=== PATIENT | female | born 1935 | race Caucasian/White ===

== ENCOUNTER 2023-05-11 14:49 | Emergency (ER) | payer OTHER ==
[~2023-05-11] VITALS: Ht 152.4 cm; Wt 47.6 kg
[2023-05-11 15:01] VITALS: BP_SYST 157
--- NOTE | 2023-05-11 15:01 | NUR ---
Placed in room 01 . Placed on court monitor, blood pressure machine and pulse oximeter. To gown for exam. Side rails up.
--- NOTE | 2023-05-11 15:02 | NUR ---
RECEIVED PT FROM ANGELICA MOREIRA. PT DEWEY KING FOR C/O GENERALIZED WEAKNESS X1 DAY. PT IS AAOX4. ON R/A. NO S/S OF RESP DISTRESS. DISTAL PULSES NORMAL, SKIN WARM, CDI, NO EDEMA. DENIES PAIN.
--- NOTE | 2023-05-11 15:15 | NUR ---
DR. GUPTA AT BEDSIDE TO ASSESS PT.
--- NOTE | 2023-05-11 15:30 | NUR ---
# 22 gauge angiocath placed to RAC. Use of asceptic technique. Opsite placed over site. Blood return noted. Blood for lab drawn from site. Flushed with 10 cc of normal saline. No evidence of infiltration noted. Patient tolerated well.
[2023-05-11] MEDS ORDERED: NACL 0.9% 1,000 ML IV ONE (15:45)
[2023-05-11 16:08] LABS: BASOPHILS % (AUTO) 0.3 % (0.0-2.0); EOSINOPHILS # (AUTO) 0.1 K/uL (0.0-0.4); EOSINOPHILS % (AUTO) 1.9 % (0.0-4.0); HEMATOCRIT 36.2 % (36-48); LYMPHOCYTES # (AUTO) 1.1 K/uL (1.0-5.5); MEAN CORPUSCULAR HEMOGLOBIN 31 pg (27-31); MEAN CORPUSCULAR HGB CONC 33 % (32-36); MEAN CORPUSCULAR VOLUME 93 fL (79.0-98.0); MONOCYTES # (AUTO) 0.3 K/uL (0.0-1.0); MONOCYTES % (AUTO) 8.6 % (1.7-9.3); NEUTROPHILS % (AUTO) 57.2 % (40.0-70.0); PLATELET COUNT (AUTO) 146 K/uL (130-430); RED BLOOD CELL COUNT(AUTO) 3.92 MIL/uL (4.2-6.2); RED CELL DISTRIBUTION WIDTH 14.2 % (9.0-15.0); WHITE BLOOD COUNT (AUTO) 3.5 K/uL (4.8-10.8)
[2023-05-11 16:19] LABS: ANION GAP 4 (5-15); CHLORIDE 104 mmol/L (98-107); CREATININE 0.71 mg/dL (0.55-1.30); GLUCOSE 88 mg/dL (74-106); UREA NITROGEN, BLOOD 14 mg/dL (8-21)
[2023-05-11 16:26] LABS: ALANINE AMINOTRANSFERASE 14 U/L (12-78); ALBUMIN 3.5 g/dL (3.4-4.8); ASPARTATE AMINOTRANSFERASE 16 U/L (10-37); TOTAL BILIRUBIN 0.5 mg/dL (0.0-1.0)
[2023-05-11 17:28] LABS: BILIRUBIN,URINE NEGATIVE (NEGATIVE); BLOOD, URINE NEGATIVE (NEGATIVE); CLARITY/URINE CLEAR (CLEAR); GLUCOSE,URINE NEGATIVE (NEGATIVE); KETONES,URINE NEGATIVE (NEGATIVE); LEUKOCYTE ESTERASE ,URINE TRACE (NEGATIVE); NITRITE, URINE NEGATIVE (NEGATIVE); PROTEIN URINE NEGATIVE (NEGATIVE); UROBILINOGEN,URINE 0.2 (0.2-1.0)
[2023-05-11 17:30] LABS: COLOR,URINE STRAW (YELLOW)
[2023-05-11 17:35] LABS: RBC,URINE 0-3 /HPF (0-3)
[2023-05-11 17:36] LABS: BACTERIA,URINE FEW /HPF (None Seen); MUCUS,URINE None Seen /LPF (None Seen)
--- NOTE | 2023-05-11 18:00 | NUR ---
DR. GUPTA AT BEDSIDE TO DISCUSS POC.
[2023-05-11] MEDS ORDERED: cefTRIAXone 1 GM VIAL ONE (18:26)
[2023-05-11] MEDS ORDERED: cefTRIAXone 1 GM in D5W 50 ML IV ONE (18:30)
[2023-05-11] MEDS ORDERED: ASPIRIN 81 MG TABLET(ECOTRIN) PO ONE (18:30)
[2023-05-11] MEDS ORDERED: SULF1TAB47 PO (18:39)
[2023-05-11] MEDS ORDERED: ASPI-1393 PO (18:39)
[2023-05-11 18:50] VITALS: BP_SYST 142
--- NOTE | 2023-05-11 18:54 | NUR ---
Patient given written and verbal discharge instructions and verbalizes understanding. ER MD discussed with patient the results and treatment provided. Patient in stable condition. ID arm band removed. IV catheter removed intact and dressing applied, no active bleeding. Rx of BACTRIM, ASA given. Patient educated on pain management and to follow up with PMD. Pain Scale 0/10. Opportunity for questions provided and answered. Medication side effect fact sheet provided.
== END 2023-05-11 18:50 | disposition home or self-care (01) ==
LOC: SED 14:49
DX: N39.0 Urinary tract infection, site not specified (principal); R53.1 Weakness; I10 Essential (primary) hypertension; Z88.0 Allergy status to penicillin; Z79.899 Other long term (current) drug therapy
CPT/HCPCS: 99285; 96365; 70450; 71045; 96361; 80053; 81000; 83880; 85025; 87086; 84484; 36415; 93005; 76376; J0696; J7030

== ENCOUNTER 2023-05-22 21:55 | Inpatient (IN) | payer OTHER ==
[~2023-05-22] VITALS: Ht 170.2 cm; Wt 48.1 kg
[2023-05-22 21:55] VITALS: BP_SYST 144; PULSE 92; RESP 16; TEMP 97.6; O2SAT 99
[~2023-05-22 21:55] MED LIST: ASPI-1393 PO; SULF1TAB47 PO
[2023-05-22] MEDS ORDERED: LEVO25TA7 PO (22:16)
[2023-05-23] VITALS (7 sets, daily range): BP systolic 65–142; PULSE 67–96; RESP 17–20; TEMP 97.3–98.3; O2SAT 95–98
[2023-05-23 00:03] LABS: BILIRUBIN,URINE NEGATIVE (NEGATIVE); BLOOD, URINE NEGATIVE (NEGATIVE); CLARITY/URINE CLEAR (CLEAR); COLOR,URINE YELLOW (YELLOW); GLUCOSE,URINE NEGATIVE (NEGATIVE); KETONES,URINE NEGATIVE (NEGATIVE); LEUKOCYTE ESTERASE ,URINE NEGATIVE (NEGATIVE); NITRITE, URINE NEGATIVE (NEGATIVE); PROTEIN URINE NEGATIVE (NEGATIVE); UROBILINOGEN,URINE 0.2 (0.2-1.0)
[2023-05-23] MEDS ORDERED: iohexoL 350 mgI/mL, 100 ML INFUS..BTL IV ONE (00:43)
[2023-05-23 00:54] LABS: BASOPHILS % (AUTO) 0.4 % (0.0-2.0); EOSINOPHILS # (AUTO) 0.1 K/uL (0.0-0.4); EOSINOPHILS % (AUTO) 2.6 % (0.0-4.0); HEMATOCRIT 35.9 % (36-48); LYMPHOCYTES # (AUTO) 1.3 K/uL (1.0-5.5); LYMPHOCYTES % (AUTO) 33.9 % (20.5-51.5); MEAN CORPUSCULAR HEMOGLOBIN 31 pg (27-31); MEAN CORPUSCULAR HGB CONC 33 % (32-36); MEAN CORPUSCULAR VOLUME 92 fL (79.0-98.0); MONOCYTES # (AUTO) 0.3 K/uL (0.0-1.0); MONOCYTES % (AUTO) 8.5 % (1.7-9.3); NEUTROPHILS # (AUTO) 2.2 K/uL (1.8-7.7); NEUTROPHILS % (AUTO) 54.6 % (40.0-70.0); PLATELET COUNT (AUTO) 148 K/uL (130-430); RED BLOOD CELL COUNT(AUTO) 3.92 MIL/uL (4.2-6.2); RED CELL DISTRIBUTION WIDTH 14.5 % (9.0-15.0); WHITE BLOOD COUNT (AUTO) 3.9 K/uL (4.8-10.8)
[2023-05-23 01:01] LABS: ANION GAP 5 (5-15); CALCIUM 9.6 mg/dL (8.4-11.0); CHLORIDE 104 mmol/L (98-107); CREATININE 0.77 mg/dL (0.55-1.30); GLUCOSE 91 mg/dL (74-106); UREA NITROGEN, BLOOD 21 mg/dL (8-21)
[2023-05-23 01:04] LABS: INR 1.1 (0.8-1.2); PROTHROMBIN TIME 11.6 SECS (9.5-12.5)
[2023-05-23 01:05] LABS: ALANINE AMINOTRANSFERASE 13 U/L (12-78); ALBUMIN 3.7 g/dL (3.4-4.8); ASPARTATE AMINOTRANSFERASE 14 U/L (10-37); TOTAL BILIRUBIN 0.6 mg/dL (0.0-1.0)
[2023-05-23] MEDS ORDERED: FAMO20TA8 PO (10:43)
[2023-05-23] MEDS ORDERED: ALPR1TAB2 PO (10:43)
[2023-05-23] MEDS ORDERED: RIVA20TA PO (10:43)
[2023-05-23] MEDS ORDERED: MIRT-115 PO (10:44)
[2023-05-23] MEDS ORDERED: LOSA100T4 PO (10:44)
[2023-05-23] MEDS ORDERED: NALOXONE HCL 0.4 MG/ML AMP (NARCAN) IVP PRN ×2 (11:15)
[2023-05-23] MEDS ORDERED: LORazepam 2 MG/ML VIAL IVP PRN (11:15)
[2023-05-23] MEDS ORDERED: HYDROcodone/ACETAMIN 5-325 MG TAB (NORCO/ VICODIN) PO PRN (11:15)
[2023-05-23] MEDS ORDERED: HYDROcodone/ACETAMIN 10-325 MG TAB PO PRN (11:15)
[2023-05-23] MEDS ORDERED: ONDANSETRON HCL 4 MG/2 ML VIAL IVP PRN (11:15)
[2023-05-23] MEDS ORDERED: ACETAMINOPHEN 325 MG TABLET PO PRN ×2 (11:15→11:45)
[2023-05-23] MEDS: NORMAL SALINE 5 ML DISP.SYRIN IVF SCH ×2 (13:56→21:44)
[2023-05-23] MEDS ORDERED: WARFARIN SODIUM 4 MG TABLET PO ONE (18:45)
[2023-05-23] MEDS: LOSARTAN POTASSIUM 50 MG TABLET (COZAAR) PO SCH (18:47)
[2023-05-23] MEDS ORDERED: *LOVENOX 1MG/KG Q12H/PHARMACY XX ONE (21:00)
[2023-05-23] MEDS: FAMOTIDINE 20 MG TABLET PO SCH (21:34)
[2023-05-23] MEDS: ALPRAZolam 0.25 MG TABLET PO SCH (21:34)
[2023-05-23] MEDS: ENOXAPARIN SODIUM 60 MG/0.6 ML SYRINGE SUBCUT SCH (21:34)
[2023-05-23] MEDS: MIRTAZAPINE 15 MG TABLET PO SCH (21:35)
[2023-05-24] VITALS (7 sets, daily range): BP systolic 109–134; PULSE 56–61; RESP 16–18; TEMP 95.6–97.3; O2SAT 96–99
[2023-05-24 04:56] LABS: BASOPHILS % (AUTO) 0.3 % (0.0-2.0); EOSINOPHILS # (AUTO) 0.1 K/uL (0.0-0.4); EOSINOPHILS % (AUTO) 1.5 % (0.0-4.0); HEMATOCRIT 34.6 % (36-48); HEMOGLOBIN 11.4 g/dL (12.0-16.0); LYMPHOCYTES # (AUTO) 1.4 K/uL (1.0-5.5); LYMPHOCYTES % (AUTO) 34.8 % (20.5-51.5); MEAN CORPUSCULAR HEMOGLOBIN 31 pg (27-31); MEAN CORPUSCULAR HGB CONC 33 % (32-36); MEAN CORPUSCULAR VOLUME 92 fL (79.0-98.0); MONOCYTES # (AUTO) 0.3 K/uL (0.0-1.0); NEUTROPHILS # (AUTO) 2.3 K/uL (1.8-7.7); NEUTROPHILS % (AUTO) 55.4 % (40.0-70.0); PLATELET COUNT (AUTO) 149 K/uL (130-430); RED BLOOD CELL COUNT(AUTO) 3.75 MIL/uL (4.2-6.2); RED CELL DISTRIBUTION WIDTH 14.1 % (9.0-15.0); WHITE BLOOD COUNT (AUTO) 4.1 K/uL (4.8-10.8)
[2023-05-24 05:06] LABS: ANION GAP 7 (5-15); CALCIUM 9.1 mg/dL (8.4-11.0); CHLORIDE 105 mmol/L (98-107); CREATININE 0.71 mg/dL (0.55-1.30); GLUCOSE 96 mg/dL (74-106); UREA NITROGEN, BLOOD 18 mg/dL (8-21)
[2023-05-24 05:13] LABS: ALANINE AMINOTRANSFERASE 13 U/L (12-78); ALBUMIN 3.1 g/dL (3.4-4.8); ASPARTATE AMINOTRANSFERASE 18 U/L (10-37); PHOSPHORUS 3.8 mg/dL (2.7-4.5); TOTAL BILIRUBIN 0.5 mg/dL (0.0-1.0)
[2023-05-24] MEDS: NORMAL SALINE 5 ML DISP.SYRIN IVF SCH ×3 (05:56→21:41)
[2023-05-24] MEDS ORDERED: RIVAROXABAN 10 MG TABLET PO SCH (09:00)
[2023-05-24] MEDS ORDERED: ASPIRIN 81 MG TABLET(ECOTRIN) PO SCH (09:00)
[2023-05-24 09:58] LABS: INR 1.1 (0.8-1.2)
[2023-05-24] MEDS: LEVOTHYROXINE SODIUM 0.025 MG TABLET PO SCH (10:44)
[2023-05-24] MEDS: ENOXAPARIN SODIUM 60 MG/0.6 ML SYRINGE SUBCUT SCH ×2 (10:44→21:41)
[2023-05-24] MEDS ORDERED: WARFARIN SODIUM 4 MG TABLET PO SCH (18:00)
[2023-05-24] MEDS: LOSARTAN POTASSIUM 50 MG TABLET (COZAAR) PO SCH (21:39)
[2023-05-24] MEDS: ALPRAZolam 0.25 MG TABLET PO SCH (21:40)
[2023-05-24] MEDS: FAMOTIDINE 20 MG TABLET PO SCH (21:40)
[2023-05-24] MEDS: MIRTAZAPINE 15 MG TABLET PO SCH (21:40)
[2023-05-25 05:34] LABS: BASOPHILS % (AUTO) 0.5 % (0.0-2.0); EOSINOPHILS # (AUTO) 0.1 K/uL (0.0-0.4); EOSINOPHILS % (AUTO) 2.6 % (0.0-4.0); HEMOGLOBIN 12.7 g/dL (12.0-16.0); LYMPHOCYTES # (AUTO) 1.5 K/uL (1.0-5.5); LYMPHOCYTES % (AUTO) 36.2 % (20.5-51.5); MEAN CORPUSCULAR HEMOGLOBIN 31 pg (27-31); MEAN CORPUSCULAR HGB CONC 33 % (32-36); MEAN CORPUSCULAR VOLUME 93 fL (79.0-98.0); MONOCYTES # (AUTO) 0.3 K/uL (0.0-1.0); MONOCYTES % (AUTO) 8.3 % (1.7-9.3); NEUTROPHILS # (AUTO) 2.1 K/uL (1.8-7.7); NEUTROPHILS % (AUTO) 52.4 % (40.0-70.0); PLATELET COUNT (AUTO) 148 K/uL (130-430); RED BLOOD CELL COUNT(AUTO) 4.11 MIL/uL (4.2-6.2); RED CELL DISTRIBUTION WIDTH 14.2 % (9.0-15.0); WHITE BLOOD COUNT (AUTO) 4.1 K/uL (4.8-10.8)
[2023-05-25 05:48] LABS: ANION GAP 8 (5-15); CALCIUM 9.5 mg/dL (8.4-11.0); CHLORIDE 104 mmol/L (98-107); CREATININE 0.61 mg/dL (0.55-1.30); GLUCOSE 95 mg/dL (74-106); UREA NITROGEN, BLOOD 13 mg/dL (8-21)
[2023-05-25] MEDS: NORMAL SALINE 5 ML DISP.SYRIN IVF SCH ×3 (05:51→21:35)
[2023-05-25 07:27] LABS: INR 1.1 (0.8-1.2); PROTHROMBIN TIME 11.3 SECS (9.5-12.5)
[2023-05-25 07:48] VITALS: BP_SYST 99; PULSE 68; RESP 18; TEMP 96.5; O2SAT 98
[2023-05-25] MEDS: LEVOTHYROXINE SODIUM 0.025 MG TABLET PO SCH (07:55)
[2023-05-25] MEDS: ENOXAPARIN SODIUM 60 MG/0.6 ML SYRINGE SUBCUT SCH ×2 (08:25→21:29)
[2023-05-25 08:30] VITALS: O2SAT 98
[2023-05-25 15:55] VITALS: BP_SYST 132; PULSE 65; RESP 18; TEMP 97.8; O2SAT 98
[2023-05-25] MEDS: WARFARIN SODIUM 6 MG TABLET PO SCH (17:22)
[2023-05-25 19:40] VITALS: O2SAT 96
[2023-05-25 20:02] VITALS: BP_SYST 121; PULSE 60; RESP 18; TEMP 97.4; O2SAT 96
[2023-05-25] MEDS: ALPRAZolam 0.25 MG TABLET PO SCH (21:28)
[2023-05-25] MEDS: MIRTAZAPINE 15 MG TABLET PO SCH (21:28)
[2023-05-25] MEDS: levETIRAcetam 500 MG TABLET PO SCH (21:28)
[2023-05-25] MEDS: LOSARTAN POTASSIUM 50 MG TABLET (COZAAR) PO SCH (21:28)
[2023-05-25] MEDS: FAMOTIDINE 20 MG TABLET PO SCH (21:28)
[2023-05-25] MEDS: DOCUSATE SODIUM 100 MG CAPSULE PO SCH (21:28)
[2023-05-26] VITALS (7 sets, daily range): BP systolic 96–113; PULSE 56–78; RESP 12–18; TEMP 96.5–98.5; O2SAT 93–98
[2023-05-26 05:53] LABS: ANION GAP 3 (5-15); CALCIUM 9.8 mg/dL (8.4-11.0); CHLORIDE 104 mmol/L (98-107); CREATININE 0.72 mg/dL (0.55-1.30); GLUCOSE 96 mg/dL (74-106); UREA NITROGEN, BLOOD 15 mg/dL (8-21)
[2023-05-26 05:54] LABS: BASOPHILS % (AUTO) 0.6 % (0.0-2.0); EOSINOPHILS # (AUTO) 0.1 K/uL (0.0-0.4); EOSINOPHILS % (AUTO) 2.1 % (0.0-4.0); HEMATOCRIT 36.5 % (36-48); HEMOGLOBIN 12.1 g/dL (12.0-16.0); LYMPHOCYTES # (AUTO) 1.3 K/uL (1.0-5.5); LYMPHOCYTES % (AUTO) 36.7 % (20.5-51.5); MEAN CORPUSCULAR HEMOGLOBIN 31 pg (27-31); MEAN CORPUSCULAR HGB CONC 33 % (32-36); MEAN CORPUSCULAR VOLUME 92 fL (79.0-98.0); MONOCYTES # (AUTO) 0.3 K/uL (0.0-1.0); MONOCYTES % (AUTO) 9.6 % (1.7-9.3); NEUTROPHILS # (AUTO) 1.8 K/uL (1.8-7.7); PLATELET COUNT (AUTO) 166 K/uL (130-430); RED BLOOD CELL COUNT(AUTO) 3.96 MIL/uL (4.2-6.2); RED CELL DISTRIBUTION WIDTH 14.2 % (9.0-15.0); WHITE BLOOD COUNT (AUTO) 3.5 K/uL (4.8-10.8)
[2023-05-26] MEDS: levETIRAcetam 500 MG TABLET PO SCH ×2 (08:15→21:53)
[2023-05-26] MEDS: DOCUSATE SODIUM 100 MG CAPSULE PO SCH ×2 (08:15→21:54)
[2023-05-26] MEDS: LEVOTHYROXINE SODIUM 0.025 MG TABLET PO SCH (08:15)
[2023-05-26] MEDS: NORMAL SALINE 5 ML DISP.SYRIN IVF SCH ×3 (08:16→21:57)
[2023-05-26] MEDS: ENOXAPARIN SODIUM 60 MG/0.6 ML SYRINGE SUBCUT SCH ×2 (08:16→21:57)
[2023-05-26 08:54] LABS: INR 1.2 (0.8-1.2); PROTHROMBIN TIME 12.2 SECS (9.5-12.5)
[2023-05-26] MEDS ORDERED: ATORVASTATIN 20 MG TABLET PO ONE (11:30)
[2023-05-26] MEDS ORDERED: WARFARIN SODIUM 7.5 MG TABLET PO SCH (18:00)
[2023-05-26] MEDS: WARFARIN SODIUM 1 MG TABLET PO SCH (18:06)
[2023-05-26] MEDS: WARFARIN SODIUM 6 MG TABLET PO SCH (18:07)
[2023-05-26] MEDS: ALPRAZolam 0.25 MG TABLET PO SCH (21:53)
[2023-05-26] MEDS: MIRTAZAPINE 15 MG TABLET PO SCH (21:54)
[2023-05-26] MEDS: LOSARTAN POTASSIUM 50 MG TABLET (COZAAR) PO SCH (21:55)
[2023-05-26] MEDS: FAMOTIDINE 20 MG TABLET PO SCH (21:56)
[2023-05-27 00:29] VITALS: BP_SYST 120; PULSE 65; RESP 18; TEMP 98; O2SAT 97
[2023-05-27 04:58] LABS: BASOPHILS % (AUTO) 0.3 % (0.0-2.0); EOSINOPHILS # (AUTO) 0.1 K/uL (0.0-0.4); HEMOGLOBIN 11.4 g/dL (12.0-16.0); LYMPHOCYTES # (AUTO) 1.3 K/uL (1.0-5.5); LYMPHOCYTES % (AUTO) 26.6 % (20.5-51.5); MEAN CORPUSCULAR HEMOGLOBIN 31 pg (27-31); MEAN CORPUSCULAR HGB CONC 34 % (32-36); MEAN CORPUSCULAR VOLUME 92 fL (79.0-98.0); MONOCYTES # (AUTO) 0.4 K/uL (0.0-1.0); MONOCYTES % (AUTO) 8.8 % (1.7-9.3); NEUTROPHILS # (AUTO) 3.1 K/uL (1.8-7.7); NEUTROPHILS % (AUTO) 62.3 % (40.0-70.0); PLATELET COUNT (AUTO) 151 K/uL (130-430); RED BLOOD CELL COUNT(AUTO) 3.71 MIL/uL (4.2-6.2); RED CELL DISTRIBUTION WIDTH 14.2 % (9.0-15.0)
[2023-05-27 05:36] LABS: ALANINE AMINOTRANSFERASE 16 U/L (12-78); ALBUMIN 3.1 g/dL (3.4-4.8); ANION GAP 5 (5-15); ASPARTATE AMINOTRANSFERASE 19 U/L (10-37); CALCIUM 9.5 mg/dL (8.4-11.0); CHLORIDE 103 mmol/L (98-107); CREATININE 0.84 mg/dL (0.55-1.30); GLUCOSE 100 mg/dL (74-106); TOTAL BILIRUBIN 0.4 mg/dL (0.0-1.0); UREA NITROGEN, BLOOD 21 mg/dL (8-21)
[2023-05-27] MEDS: NORMAL SALINE 5 ML DISP.SYRIN IVF SCH ×3 (06:40→21:52)
[2023-05-27 06:44] LABS: INR 1.6 (0.8-1.2); PROTHROMBIN TIME 16.5 SECS (9.5-12.5)
[2023-05-27 08:00] VITALS: O2SAT 97
[2023-05-27] MEDS: ATORVASTATIN 20 MG TABLET PO SCH (09:15)
[2023-05-27] MEDS: LEVOTHYROXINE SODIUM 0.025 MG TABLET PO SCH (09:15)
[2023-05-27] MEDS: levETIRAcetam 500 MG TABLET PO SCH ×2 (09:15→21:51)
[2023-05-27] MEDS: DOCUSATE SODIUM 100 MG CAPSULE PO SCH ×2 (09:17→21:51)
[2023-05-27] MEDS: ENOXAPARIN SODIUM 60 MG/0.6 ML SYRINGE SUBCUT SCH ×2 (09:23→21:52)
[2023-05-27 11:26] VITALS: BP_SYST 102; PULSE 66; RESP 16; TEMP 97.9; O2SAT 95
[2023-05-27 17:18] VITALS: BP_SYST 106; PULSE 69; RESP 16; TEMP 98.2; O2SAT 95
[2023-05-27] MEDS: WARFARIN SODIUM 1 MG TABLET PO SCH (17:38)
[2023-05-27] MEDS: WARFARIN SODIUM 6 MG TABLET PO SCH (17:39)
[2023-05-27 20:00] VITALS: BP_SYST 103; PULSE 66; RESP 18; TEMP 97.9; O2SAT 95
[2023-05-27] MEDS: LOSARTAN POTASSIUM 50 MG TABLET (COZAAR) PO SCH (21:51)
[2023-05-27] MEDS: FAMOTIDINE 20 MG TABLET PO SCH (21:51)
[2023-05-27] MEDS: ALPRAZolam 0.25 MG TABLET PO SCH (21:52)
[2023-05-27] MEDS: MIRTAZAPINE 15 MG TABLET PO SCH (21:52)
[2023-05-28 00:08] VITALS: BP_SYST 96; PULSE 73; RESP 18; TEMP 96.7; O2SAT 95
[2023-05-28 05:07] LABS: BASOPHILS % (AUTO) 0.3 % (0.0-2.0); EOSINOPHILS # (AUTO) 0.1 K/uL (0.0-0.4); EOSINOPHILS % (AUTO) 3.3 % (0.0-4.0); HEMATOCRIT 32.8 % (36-48); LYMPHOCYTES # (AUTO) 1.3 K/uL (1.0-5.5); LYMPHOCYTES % (AUTO) 37.2 % (20.5-51.5); MEAN CORPUSCULAR HEMOGLOBIN 31 pg (27-31); MEAN CORPUSCULAR HGB CONC 34 % (32-36); MEAN CORPUSCULAR VOLUME 92 fL (79.0-98.0); MONOCYTES # (AUTO) 0.4 K/uL (0.0-1.0); MONOCYTES % (AUTO) 11.2 % (1.7-9.3); NEUTROPHILS # (AUTO) 1.7 K/uL (1.8-7.7); PLATELET COUNT (AUTO) 154 K/uL (130-430); RED BLOOD CELL COUNT(AUTO) 3.58 MIL/uL (4.2-6.2); RED CELL DISTRIBUTION WIDTH 14.5 % (9.0-15.0); WHITE BLOOD COUNT (AUTO) 3.5 K/uL (4.8-10.8)
[2023-05-28 05:23] LABS: ANION GAP 4 (5-15); CALCIUM 9.4 mg/dL (8.4-11.0); CHLORIDE 103 mmol/L (98-107); CREATININE 0.71 mg/dL (0.55-1.30); GLUCOSE 97 mg/dL (74-106); UREA NITROGEN, BLOOD 23 mg/dL (8-21)
[2023-05-28] MEDS: NORMAL SALINE 5 ML DISP.SYRIN IVF SCH (05:45)
[2023-05-28 07:00] VITALS: BP_SYST 96; PULSE 65; RESP 18; TEMP 96.3; O2SAT 96
[2023-05-28 07:30] LABS: INR 2.2 (0.8-1.2); PROTHROMBIN TIME 22.5 SECS (9.5-12.5)
[2023-05-28] MEDS: ATORVASTATIN 20 MG TABLET PO SCH (08:33)
[2023-05-28] MEDS: levETIRAcetam 500 MG TABLET PO SCH (08:33)
[2023-05-28] MEDS: LEVOTHYROXINE SODIUM 0.025 MG TABLET PO SCH (08:33)
[2023-05-28] MEDS: ENOXAPARIN SODIUM 60 MG/0.6 ML SYRINGE SUBCUT SCH (08:33)
[2023-05-28] MEDS: DOCUSATE SODIUM 100 MG CAPSULE PO SCH (08:33)
[2023-05-28] MEDS ORDERED: LIP20 PO (10:07)
[2023-05-28] MEDS ORDERED: LEVE500T9 PO (10:07)
[2023-05-28] MEDS ORDERED: WARF4TAB72 PO (10:07)
[2023-05-28] MEDS ORDERED: DOCU-144 PO (10:07)
[2023-05-28 11:31] VITALS: BP_SYST 107; PULSE 69; RESP 16; TEMP 97.3; O2SAT 94
[2023-05-28 11:57] VITALS: BP_SYST 96; PULSE 65; RESP 18; TEMP 96.3; O2SAT 96
== END 2023-05-28 12:47 | disposition home health service (06) | DRG 69 ==
LOC: SED 21:55 → SMU 05-23 04:42 → STU 05-23 07:58 → SMU 05-27 23:22
PROVIDERS: ADMIT Preventive Medicine Preventive Medicine/Occupational Environmental Medicine; ATTEND Preventive Medicine Preventive Medicine/Occupational Environmental Medicine
DX: G45.9 Transient cerebral ischemic attack, unspecified (principal); E44.0 Moderate protein-calorie malnutrition; Z68.1 Body mass index [BMI] 19.9 or less, adult; E03.9 Hypothyroidism, unspecified; D64.9 Anemia, unspecified; D72.819 Decreased white blood cell count, unspecified; E88.09 Other disorders of plasma-protein metabolism, not elsewhere classified; I11.9 Hypertensive heart disease without heart failure; I48.91 Unspecified atrial fibrillation; R20.0 Anesthesia of skin; R53.81 Other malaise; R79.89 Other specified abnormal findings of blood chemistry; Z79.01 Long term (current) use of anticoagulants; Z95.2 Presence of prosthetic heart valve; Z88.0 Allergy status to penicillin; R56.9 Unspecified convulsions
CPT/HCPCS: 36415; 70450-TC; 70496; 70498; 76376; 80048; 80053; 81003; 83735; 84100; 84484; 85025; 85610-TC; 92610-GN; 93005; 93306; 95816; 97110-GP; 97116-GP; 97530-GP; 99285; G0378; J1650; J2405; Q9967